=== PATIENT | male | born 1960 | race Caucasian/White ===

== ENCOUNTER → 2021-12-03 13:35 | Outpatient (CLI) | payer OTHER, SELFPAY ==
--- NOTE | 2021-12-03 13:36 | DI.RAD.S_ITS ---
PROCEDURE: XR FOOT RT MIN 3V INDICATIONS: bilateral foot pain TECHNIQUE: 3 views of the foot were acquired. COMPARISON: [facility], , XR FOOT LT MIN 3V, 12/03/2021, 13:52. FINDINGS: Bones: No acute fractures or dislocations. No suspicious bony lesions. Mild scattered degenerative changes are seen in the interphalangeal joints of the toes. Soft tissues: No suspicious soft tissue calcification. IMPRESSION: No acute osseous abnormality. If the symptoms persist, consider cross sectional imaging such as MRI or CT for further assessment. Dictated by: Franko Cabrera M.D. on 12/03/2021 at 20:16 Approved by: Franko Cabrera M.D. on 12/03/2021 at 20:17
--- NOTE | 2021-12-03 13:36 | DI.RAD.S_ITS ---
PROCEDURE: XR FOOT LT MIN 3V INDICATIONS: bilateral foot pain TECHNIQUE: 3 views of the foot were acquired. COMPARISON: None. FINDINGS: Bones: No acute fractures or dislocations. No suspicious bony lesions. Mild scattered degenerative changes are seen in the interphalangeal joints of the toes. Soft tissues: No suspicious soft tissue calcification. IMPRESSION: No acute osseous abnormality. If the symptoms persist, consider cross sectional imaging such as MRI or CT for further assessment. Dictated by: Franko Cabrera M.D. on 12/03/2021 at 20:09 Approved by: Franko Cabrera M.D. on 12/03/2021 at 20:10
== END ==
PROVIDERS: PCP Family Medicine; Referring Provider Family Medicine; Visit Provider Family Medicine
DX: M79.671 Pain in right foot (principal); M79.672 Pain in left foot
CPT/HCPCS: 73630

== ENCOUNTER → 2021-12-06 09:08 | Outpatient (CLI) | payer OTHER, SELFPAY ==
[2021-12-06 09:46] LABS: Add Manual Diff / Slide Review NO; Basophils Absolute Auto 100 /uL (0-100); Basophils Percent Auto 1.1 % (0-2); Eosinophils Absolute Auto 200 /uL (0-450); Eosinophils Percent Auto 4.6 % (2-4); Hematocrit 40.2 % (41-53); Hemoglobin 13.8 g/dL (13.5-17.5); Lymphocytes Absolute Auto 1600 /uL (1100-4500); Lymphocytes Percent Auto 32.3 % (25-40); Mean Corpuscular HGB Conc 34.3 % (30-36); Mean Corpuscular Volume 90.3 fL (80-100); Monocytes Absolute Auto 400 /uL (0-900); Monocytes Percent Auto 8.4 % (3-14); Neutrophils Absolute Auto 2600 /uL (1500-7000); Neutrophils Percent Auto 53.6 % (50-75); Platelet Count 185 X10^3/uL (150-400); Red Blood Cell Count 4.46 X10^6/uL (4.5-5.9); Red Cell Distribution Width 13.5 % (11.6-14.8); White Blood Cell Count 4.8 X10^3/uL (4.5-11.0)
[2021-12-06 12:04] LABS: HEMOLYSIS < 15 (0-50); Iron 150 ug/dL (49-181)
[2021-12-06 12:10] LABS: Alanine Aminotransferase 29 IU/L (<50); Albumin 4.1 g/dL (3.5-5.0); Albumin Globulin Ratio 1.4 (1.0-2.8); Alkaline Phosphatase 82 U/L (38-126); Aspartate Aminotransferase 35 IU/L (17-59); BUN Creatinine Ratio 23.3 (6-22); Bilirubin Total 1.8 mg/dL (0.2-1.3); Blood Urea Nitrogen 14 mg/dL (9-20); Calcium 8.9 mg/dL (8.4-10.2); Carbon Dioxide 30 mmol/L (22-32); Chloride 104 mmol/L (98-107); Cholesterol 177 mg/dL (140-199); Estimated Glomerular Filt Rate > 60 mL/min (>60); Glucose 87 mg/dL (80-110); HDL Cholesterol 87 mg/dL (40-60); HEMOLYSIS < 15 (0-50); LDL Cholesterol Calculated 78 mg/dL (<100); Potassium 4.1 mmol/L (3.4-5.1); Sodium 139 mmol/L (137-145); Total Protein 7.1 g/dL (6.3-8.2); Triglycerides 58 mg/dL (35-150)
[2021-12-06 12:16] LABS: Percent Iron Saturation 37 % (20-50); Total Iron Binding Capacity 403 ug/dL (261-462); Transferrin 299 mg/dL (206-381)
[2021-12-06 12:36] LABS: TSH w/ Reflex to FT4 2.64 uIU/mL (0.47-4.68)
[2021-12-06 12:42] LABS: Ferritin 14 ng/mL (18-464)
== END ==
PROVIDERS: PCP Family Medicine; Referring Provider Family Medicine; Visit Provider Family Medicine
DX: D50.9 Iron deficiency anemia, unspecified (principal); Z78.9 Other specified health status
CPT/HCPCS: 36415; 80053; 80061; 82728; 83540; 83550; 84443; 85025

== ENCOUNTER → 2022-01-22 09:07 | Outpatient (CLI) | payer OTHER, SELFPAY ==
[2022-01-22 11:03] LABS: COVID19 -Nasal RAPID Negative (Negative)
== END ==
PROVIDERS: PCP Family Medicine; Visit Provider Surgery
DX: Z01.812 Encounter for preprocedural laboratory examination (principal); Z20.822 Contact with and (suspected) exposure to COVID-19
CPT/HCPCS: 87635; C9803

== ENCOUNTER 2022-01-23 13:12 | Day surgery (SDC) | payer OTHER, SELFPAY ==
[2022-01-23] VITALS (7 sets, daily range): BP systolic 95–123; BP diastolic 56–82; PULSE 54–82; RESP 8–18; TEMP 36.4–36.8; O2SAT 98–99; BMI 20.5
--- NOTE | 2022-01-23 14:50 | PM.HP.1 ---
History of Present Illness History of Present Illness Date Patient Seen: 01/23/22 Time Patient Seen: 14:50 Chief complaint: Colonoscopy Narrative: Srini is a 61-year-old man who is here for a colonoscopy for colon cancer screening. He believes his last colonoscopy was about 10 years ago and nothing was found. He has no known family history of colon cancer. Patient History Medical History Chicken pox (~1990) Foot pain (~2020) GERD (gastroesophageal reflux disease) (~1989) History of IBS (~1989) Iron deficiency anemia Kienb?ck's disease Right foot pain Vegetarian diet Surgical History (Updated 12/18/21 @ 19:28 by Ghada Shelley) Anesthesia History of surgery on wrist (~2009) Family & Social History Family History (Updated 12/18/21 @ 19:29 by Ghada Shelley) Father Hypertension Mother Cancer Social History: household members spouse Tobacco & Substance use: Smoking Status Never smoker alcohol intake current alcohol intake frequency 0-2 drinks per day Substance Use Type does not use Meds Home Medications and Allergies Home Medications Medication Instructions Recorded Confirmed Type sodium sul 1.479 gram-potas ch See Rx Instructions PO PER PKG DIR 01/14/22 01/23/22 Rx 0.188 gram-magnes sul 0.225 gram #24 tabs tablet (Sutab) Allergies Allergy/AdvReac Type Severity Reaction Status Date / Time No Known Drug Allergies Allergy Verified 01/23/22 13:52 Exam Vital Signs (past 8 hours): - 01/23/22 13:38 Temperature 98 F Pulse Rate 82 Respiratory Rate 16 Blood Pressure 123/82 Pulse Oximetry 99 Oxygen Delivery Method Room Air Oxygen Delivery Method Room Air Const General: healthy appearing Resp Effort & Inspection: normal respiratory effort Assessment & Plan Assessment and plan (1) Colon cancer screening: Status: Acute Plan We reviewed the risks and benefits of colonoscopy for colon cancer screening and he would like to proceed. Time Spent With Patient Critical Care time: I spent a total of [] minutes of critical care time on this patient's care today; this time is exclusive of procedural time.
[2022-01-23] MEDS: MIDAZOLAM 5 MG/5 ML VIAL 7 MG IV (15:12)
[2022-01-23] MEDS: fentaNYL 100 MCG/2 ML INJ 150 MCG IV (15:13)
--- NOTE | 2022-01-23 15:19 | PM.OP.COLON ---
Operative Date/Time/Diagnoses Date of procedure: 01/23/22 Time of procedure: 15:19 Pre-op diagnosis: Colon cancer screening Post-op diagnosis: same Procedure & Clinicians Study performed: Colonoscopy Same procedure as scheduled: Yes Surgeon: Rizwan Mendieta Procedure Notes Procedure in detail: Surgeon: Rizwan Mendieta MD Procedure: The patient was brought to the endoscopy suite, placed in left lateral decubitus position. The patient was connected to monitoring devices. A time-out was performed. Sedation was administered. Once the patient was adequately sedated, a digital rectal exam was performed and was normal. The scope was then inserted and advanced to the cecum where the appendiceal orifice was identified and photographed. The scope was then slowly withdrawn over greater than 6 minutes. The mucosa was thoroughly inspected. No polyps were found. No diverticula were noted. The scope was retroflexed in the rectum. No abnormalities were noted. The scope was straightened and removed. The patient was awakened and brought to recovery. Versed: 7 mg Fentanyl: 150 mcg EBL: 0 Findings: Normal colon Scope withdrawal time: 7 Sedation minutes: 19 Post-procedure Recommendations: Colonoscopy in 10 years Disposition: PACU
== END 2022-01-23 16:09 | disposition home or self-care (01) ==
PROVIDERS: PCP Family Medicine; Referring Provider Surgery; Visit Provider Surgery
PROC: 0DJD8ZZ Inspection of Lower Intestinal Tract, Via Natural or Artificial Opening Endoscopic (ICD-10-PCS; CPT 45378; principal; 2022-01-23 14:15)
DX: Z12.11 Encounter for screening for malignant neoplasm of colon (principal)
CPT/HCPCS: 45378; 99152; J2250; J3010

== ENCOUNTER → 2022-10-28 11:53 | Outpatient (CLI) | payer OTHER, SELFPAY ==
--- NOTE | 2022-10-28 11:55 | DI.RAD.S_ITS ---
PROCEDURE: XR FOOT LT MIN 3V INDICATIONS: left foot swelling and pain TECHNIQUE: 3 views of the foot were acquired. COMPARISON: [facility], , XR FOOT LT MIN 3V, 12/03/2021, 13:52. FINDINGS: Bones: No fractures or dislocations. No suspicious bony lesions. Soft tissues: No tibiotalar joint effusion. Achilles tendon appears normal. No soft tissue gas. IMPRESSION: No fracture. No osseous lesion. If symptoms and/or clinical suspicion for pathology persists, further assessment with repeat radiographs (7-10 days) or advanced imaging (e.g. CT, MRI or bone scan) should be considered. Dictated by: Antonina Nascimento MD, PhD on 10/28/2022 at 13:08 Approved by: Antonina Nascimento MD, PhD on 10/28/2022 at 13:09
== END ==
PROVIDERS: PCP Family Medicine; Referring Provider Family Medicine; Visit Provider Family Medicine
DX: M79.672 Pain in left foot (principal)
CPT/HCPCS: 73630

== ENCOUNTER → 2022-11-08 11:59 | Outpatient (CLI) | payer OTHER, SELFPAY ==
--- NOTE | 2022-11-08 12:00 | DI.MRI.S_ITS ---
PROCEDURE: MRFOOT LT WO CON INDICATIONS: swelling and pain w/ unremarkable x ray TECHNIQUE: Noncontrast sagittal T1 spin echo and T2 fast spin echo with fat saturation, long-axis T1 spin echo and STIR, short-axis T1 spin echo and T2 fast spin echo with fat saturation through the forefoot. COMPARISON: [facility], CR, XR FOOT LT MIN 3V, 12/03/2021, 13:52. Merged With [facility], CR, XR FOOT LT MIN 3V, 10/28/2022, 11:58. FINDINGS: Image quality: Excellent. Bones and joints: Mild osseous edema is seen within the plantar lateral aspect of the 5th metatarsal head. There is mild focal cortical irregularity along the medial aspect of the 5th metatarsal head. Small 5th metatarsophalangeal joint effusion. No bone marrow contusions or metatarsal stress fractures. The sesamoid bones appear in expected positions, without internal edema. No metatarsophalangeal joint degeneration. No intraosseous lesions. Soft tissues: Mild nonspecific soft tissue edema is seen at the dorsal aspect of the foot and within the interosseous musculature. There is subcutaneous fluid in the plantar and lateral subcutaneous tissues adjacent to the 5th metatarsal head. Visualized flexor and extensor tendons appear intact, without tenosynovitis. The distal insertions of the peroneus brevis and longus tendons appear intact. The principal Lisfranc ligament appears intact. No soft tissue ganglion cysts or bursal fluid collections. Sagittal images demonstrate no evidence for plantar plate tears. IMPRESSION: 1. Mild osseous edema within the 5th metatarsal head with mild cortical irregularity that could represent osteitis and a small osseous erosion. Small surrounding joint effusion. Findings are suspicious for a nonspecific inflammatory process including a chronic inflammatory arthritis such as rheumatoid arthritis or a chronic indolent infectious process. Recommend correlation with clinical findings and serologies. 2. Small adventitial bursal effusion in the subcutaneous tissues plantar and lateral to the 5th metatarsal head. 3. Mild soft tissue edema within the intrinsic foot musculature may be reactive versus secondary to myositis, muscle strains, or early denervation changes. 4. Mild nonspecific subcutaneous edema throughout the dorsal lateral aspect of the foot. Approved by: Franko Cabrera M.D. on 11/10/2022 at 16:38
== END ==
PROVIDERS: PCP Family Medicine; Referring Provider Family Medicine; Visit Provider Family Medicine
DX: L03.90 Cellulitis, unspecified (principal); M25.475 Effusion, left foot; M79.672 Pain in left foot; R60.0 Localized edema; M79.89 Other specified soft tissue disorders
CPT/HCPCS: 73718

== ENCOUNTER → 2022-11-11 11:44 | Outpatient (CLI) | payer OTHER, SELFPAY ==
[2022-11-11 13:07] LABS: Erythrocyte Sedimentation Rate 7 MM/HR (0-15)
[2022-11-11 17:42] LABS: C-Reactive Protein Quant < 0.5 mg/dL (<1.0)
[2022-11-11 17:53] LABS: Rheumatoid Factor < 8.6 IU/mL (<12.0)
[2022-11-13 13:40] LABS: CCP Antibodies IgG/IgA 5 units (0-19)
== END ==
PROVIDERS: PCP Family Medicine; Referring Provider Family Medicine; Visit Provider Family Medicine
DX: M79.671 Pain in right foot (principal); M79.672 Pain in left foot; M79.673 Pain in unspecified foot; M79.89 Other specified soft tissue disorders
CPT/HCPCS: 36415; 84550; 85651; 86140; 86200; 86430

== ENCOUNTER 2022-11-22 05:24 | Observation (INO) | payer OTHER, SELFPAY ==
[2022-11-22] VITALS (7 sets, daily range): BP systolic 105–127; BP diastolic 64–74; PULSE 54–62; RESP 16–18; TEMP 36.3–37.2; O2SAT 99–100; BMI 20.5; BMI 22.4
--- NOTE | 2022-11-22 05:44 | ED.GENADULT ---
HPI - General Adult General Chief complaint: Allergic Reaction Stated complaint: woke up with swollen bottom lip Time Seen by Provider: 11/22/22 05:27 Source: patient Mode of arrival: Ambulatory Limitations: no limitations History of Present Illness HPI narrative: Patient is a 62-year-old male. He is otherwise healthy. Approximately 1 month ago had an unexplained swelling to his left foot. Has seen his primary doctor. Has had a pretty extensive workup of this swelling without a definitive diagnosis. He was on doxycycline but has completed the course of the doxycycline a couple weeks ago. Was his normal state of health when he went to bed last night. He woke up this morning approximately 1 hour prior to arrival here in the emergency department with a swollen lower lip. No fevers. No problems swallowing. No problems breathing. No skin rashes anywhere. He is still having some swelling of his left foot but this is not new. He did take some ibuprofen last evening because of his left foot issues. Related Data Previous Rx's Medication Instructions Recorded doxycycline hyclate 100 mg capsule 100 mg PO BID #14 caps 11/03/22 Allergies Allergy/AdvReac Type Severity Reaction Status Date / Time No Known Drug Allergies Allergy Verified 10/28/22 11:24 Review of Systems Constitutional Constitutional: Reports system reviewed and no additional complaints, except as documented ENT Ears, Nose, Mouth, and Throat: Reports system reviewed and no additional complaints, except as documented Respiratory Respiratory: Reports system reviewed and no additional complaints, except as documented Integumentary/Breasts Skin/Breast: Reports system reviewed and no additional complaints, except as documented Neurologic Neurologic: Reports system reviewed and no additional complaints, except as documented Hematologic/Lymphatic On Anticoagulants: No Patient History Medical History Chicken pox (~1990) Foot pain (~2020) GERD (gastroesophageal reflux disease) (~1989) History of IBS (~1989) Iron deficiency anemia Kienb?ck's disease Right foot pain Vegetarian diet Surgical History Anesthesia History of surgery on wrist (~2009) Family History Father Hypertension Mother Cancer Social History household members: spouse Smoking Status: Never smoker alcohol intake: current Smoking Status: Never smoker alcohol intake frequency: 0-2 drinks per day Substance Use Type: does not use Exam Initial Vital Signs Initial Vital Signs: Vital Signs Temperature 97.5 F L 11/22/22 05:30 Pulse Rate 62 11/22/22 05:30 Respiratory Rate 16 11/22/22 05:30 Blood Pressure 127/74 11/22/22 05:30 Pulse Oximetry 100 11/22/22 05:30 Oxygen Delivery Method Room Air 11/22/22 05:30 Const General: cooperative and comfortable HENMT Head: normal to inspection and normocephalic Face and sinus: normal facial exam Mouth: oral mucosae normal, tongue normal, oropharynx normal, No drooling and lip abnormal ( Lower lip swelling and left side of upper lip swollen) Eyes General: Yes appearance normal, both eyes and all related structures Resp Effort & Inspection: normal respiratory effort Auscultation: clear to auscultation bilaterally Cardio Rate: regular rate Skin General: no rashes or lesions noted Neuro General: patient alert, patient awake, patient oriented x3 and moves all extremities Extrem General: capillary refill normal Course Orders Ordered: ED Orders 11/22/22 05:34 Basic Metabolic Panel Stat Complete Blood Count AUTO DIFF Stat 11/22/22 05:36 CRP [C-Reactive Protein Quant] Stat Complement C4 Stat ESR [Erythrocyte Sedimentation Rate] Stat Acetaminophen (Acetaminophen 325 Mg Tablet) 650 mg PO Q6H PRN PRN Reason: Fever/Mild Pain (1-3) Diphenhydramine HCl (Diphenhydramine 50 Mg/Ml Vial) 25 mg IV Q6HR JAMES Famotidine (Famotidine 20 Mg/2 Ml Vial) 20 mg IV NOW JAMES Last Admin: 11/22/22 05:59 Dose: 20 mg Famotidine (Famotidine 20 Mg Tablet) 20 mg PO BID JAMES Naloxone HCl (Naloxone 0.4 Mg/Ml Vial) 0.2 mg IV Q2MIN PRN PRN Reason: Opiate Reversal Non-Formulary Medication (Epi Pen) 1 applicator IM PRN PRN PRN Reason: Anaphylaxis Discontinued Medications Diphenhydramine HCl (Diphenhydramine 50 Mg/Ml Vial) 25 mg IV NOW ONE Stop: 11/22/22 05:35 Last Admin: 11/22/22 05:59 Dose: 25 mg Methylprednisolone (Methylprednisolone 125 Mg/2 Ml Vial) 125 mg IV NOW ONE Stop: 11/22/22 05:35 Last Admin: 11/22/22 05:58 Dose: 125 mg Vital Signs Vital signs: Vital Signs - 8 hr 11/22/22 05:30 11/22/22 05:52 11/22/22 05:54 Temperature 97.5 F L Pulse Rate 62 54 L Respiratory Rate 16 Blood Pressure 127/74 109/65 Pulse Oximetry 100 100 Oxygen Delivery Method Room Air 11/22/22 05:54 Temperature Pulse Rate 55 L Respiratory Rate Blood Pressure Pulse Oximetry 100 Oxygen Delivery Method Medical Decision Making Lab Data Lab results reviewed: Yes I reviewed the patient's lab results. 11/22/22 05:45 11/22/22 05:45 Labs: Lab Results 11/22/22 11/22/22 11/22/22 Range/Units 05:45 05:45 05:45 WBC 6.2 (4.5-11.0) X10^3/uL RBC 4.37 L (4.5-5.9) X10^6/uL Hgb 13.4 L (13.5-17.5) g/dL Hct 39.1 L (41-53) % MCV 89.5 (80-100) fL MCH 30.8 (26-34) PG MCHC 34.4 (30-36) % RDW 13.0 (11.6-14.8) % Plt Count 179 (150-400) X10^3/uL Neut % (Auto) 57.4 (50-75) % Lymph % (Auto) 28.2 (25-40) % [place] % (Auto) 9.2 (3-14) % Eos % (Auto) 4.4 H (2-4) % Baso % (Auto) 0.8 (0-2) % Neut # (Auto) 3600 (0562-5406) /uL Lymph # (Auto) 1800 (4168-2345) /uL [place] # (Auto) 600 (0-900) /uL Eos # (Auto) 300 (0-450) /uL Baso # (Auto) 100 (0-100) /uL ESR 6 (0-15) MM/HR Sodium 139 (137-145) mmol/L Potassium 3.9 (3.4-5.1) mmol/L Chloride 105 (98-107) mmol/L Carbon Dioxide 29 (22-32) mmol/L BUN 16 (9-20) mg/dL Creatinine 0.58 L (0.66-1.25) mg/dL Estimated GFR > 60 (>60) mL/min BUN/Creatinine Ratio 27.6 H (6-22) Glucose 86 (80-110) mg/dL Calcium 8.5 (8.4-10.2) mg/dL C-Reactive Protein (<1.0) mg/dL 11/22/22 Range/Units 05:45 WBC (4.5-11.0) X10^3/uL RBC (4.5-5.9) X10^6/uL Hgb (13.5-17.5) g/dL Hct (41-53) % MCV (80-100) fL MCH (26-34) PG MCHC (30-36) % RDW (11.6-14.8) % Plt Count (150-400) X10^3/uL Neut % (Auto) (50-75) % Lymph % (Auto) (25-40) % [place] % (Auto) (3-14) % Eos % (Auto) (2-4) % Baso % (Auto) (0-2) % Neut # (Auto) (4746-3790) /uL Lymph # (Auto) (8998-7854) /uL [place] # (Auto) (0-900) /uL Eos # (Auto) (0-450) /uL Baso # (Auto) (0-100) /uL ESR (0-15) MM/HR Sodium (137-145) mmol/L Potassium (3.4-5.1) mmol/L Chloride (98-107) mmol/L Carbon Dioxide (22-32) mmol/L BUN (9-20) mg/dL Creatinine (0.66-1.25) mg/dL Estimated GFR (>60) mL/min BUN/Creatinine Ratio (6-22) Glucose (80-110) mg/dL Calcium (8.4-10.2) mg/dL C-Reactive Protein < 0.5 (<1.0) mg/dL MDM Narrative Medical decision making narrative: patient's history and physical exam are most consistent with the angioedema and most likelyThis is because of his ibuprofen/Motrin. He did take 25 mg of Benadryl prior to arrival. We will giveHim BenadrylAnd Solu-Medrol and famotidine although I suspect that this is not going to improve his symptoms. Patient does require admission to the hospital for airway watch given the extent of the angioedema which does appear to be all anterior. I did discuss the case with Dr. Camacho who will admit for further evaluation and treatment. I discuss the need for admission with the patient and his at bedside. They expressed understanding. Discharge Plan Departure Patient Disposition: Admitted as Observation Clinical Impression: Angioedema Admit Date/Time: 11/22/22 05:55 Admit Provider: Rhona Camacho
[2022-11-22 05:54] LABS: Add Manual Diff / Slide Review NO; Basophils Absolute Auto 100 /uL (0-100); Basophils Percent Auto 0.8 % (0-2); Eosinophils Absolute Auto 300 /uL (0-450); Eosinophils Percent Auto 4.4 % (2-4); Hematocrit 39.1 % (41-53); Hemoglobin 13.4 g/dL (13.5-17.5); Lymphocytes Absolute Auto 1800 /uL (1100-4500); Lymphocytes Percent Auto 28.2 % (25-40); Mean Corpuscular HGB Conc 34.4 % (30-36); Mean Corpuscular Hemoglobin 30.8 PG (26-34); Mean Corpuscular Volume 89.5 fL (80-100); Monocytes Absolute Auto 600 /uL (0-900); Monocytes Percent Auto 9.2 % (3-14); Neutrophils Absolute Auto 3600 /uL (1500-7000); Neutrophils Percent Auto 57.4 % (50-75); Platelet Count 179 X10^3/uL (150-400); Red Blood Cell Count 4.37 X10^6/uL (4.5-5.9); White Blood Cell Count 6.2 X10^3/uL (4.5-11.0)
[2022-11-22] MEDS: methylPREDNISolone 125 MG/2 ML VIAL IV (05:58)
[2022-11-22] MEDS: FAMOTIDINE 20 MG/2 ML VIAL IV (05:59)
[2022-11-22] MEDS: diphenhydrAMINE 50 MG/ML VIAL 25 MG IV (05:59)
[2022-11-22 06:04] LABS: BUN Creatinine Ratio 27.6 (6-22); Blood Urea Nitrogen 16 mg/dL (9-20); Calcium 8.5 mg/dL (8.4-10.2); Carbon Dioxide 29 mmol/L (22-32); Chloride 105 mmol/L (98-107); Estimated Glomerular Filt Rate > 60 mL/min (>60); Glucose 86 mg/dL (80-110); HEMOLYSIS < 15 (0-50); Potassium 3.9 mmol/L (3.4-5.1); Sodium 139 mmol/L (137-145)
--- NOTE | 2022-11-22 06:05 | P.HP_ITS ---
History of Present Illness History of Present Illness Date Patient Seen: 11/22/22 Time Patient Seen: 07:03 Date of Onset of Symptoms: 11/22/22 Chief complaint: woke up with swollen bottom lip Narrative: Woke up at 04.00 with swelling of bottom lip after taking Ibuprofen at 23.00 last night. Took 25mg PO Benadryl this am with continued progression of upper and lower lip swelling. Denies scratchy throat, difficulty swallowing, SOB or feeling of airway blockage, tongue swelling, voice changes. Denies any other symptomatology. Notably he had non-traumatic left ankle swelling diagnosed with cellulitis 10/24 and prescribed 7 days doxycycline, with continued work up for possible inflammatory process arthritis, myositis. Also notes he has had several tick bites in [place] over the last year, last one was 18 months ago. Denies associated rash. [facility] Medical History Chicken pox (~1990) Foot pain (~2020) GERD (gastroesophageal reflux disease) (~1989) History of IBS (~1989) Iron deficiency anemia Kienb?ck's disease Right foot pain Vegetarian diet Surgical History Anesthesia History of surgery on wrist (~2009) Family History Father Hypertension Mother Cancer Social History household members: spouse Smoking Status: Never smoker alcohol intake: current Meds Home Medications and Allergies Home Medications Medication Instructions Recorded Confirmed Type doxycycline hyclate 100 mg capsule 100 mg PO BID #14 caps 11/03/22 Rx Allergies Allergy/AdvReac Type Severity Reaction Status Date / Time No Known Drug Allergies Allergy Verified 10/28/22 11:24 Review of Systems Review of Systems ROS: Yes All systems reviewed with the patient and are negative except as otherwise documented Constitutional Constitutional: Reports as per HPI and Reports system reviewed and no additional complaints, except as documented ENT Ears, Nose, Mouth, and Throat: Yes as per HPI and Yes lip swelling Allergic/Immunologic Allergic/Immunologic: Reports lip swelling Exam Const General: healthy appearing and No acute distress HENMT Mouth: lip abnormal Other: lower lip severe edema, left upper lip edema; voice normal Eyes General: appearance normal, both eyes and all related structures Pupils: PERRL EOM: EOM intact bilaterally Neck Neck: normal visual inspection Chest Chest: normal inspection of the chest Resp Effort & Inspection: normal respiratory effort, able to speak in complete sentences, no audible wheezes and not labored Cardio Other: no JVD GI Inspection: normal to inspection Skin General: no rashes or lesions noted Neuro General: patient alert and patient oriented x3 Cranial Nerves: CN's II-XI intact bilaterally Extrem General: normal exam except as noted Other: left ankle edema Psych Appearance: grossly normal Objective Labs 11/22/22 05:45 11/22/22 05:45 Labs: Laboratory Results - last 24 hr 11/22/22 05:45 WBC 6.2 RBC 4.37 L Hgb 13.4 L Hct 39.1 L MCV 89.5 MCH 30.8 MCHC 34.4 RDW 13.0 Plt Count 179 Neut % (Auto) 57.4 Lymph % (Auto) 28.2 [place] % (Auto) 9.2 Eos % (Auto) 4.4 H Baso % (Auto) 0.8 Neut # (Auto) 3600 Lymph # (Auto) 1800 [place] # (Auto) 600 Eos # (Auto) 300 Baso # (Auto) 100 Assessment & Plan Assessment and plan (1) Angioedema: Status: Acute Plan: Observation given severity and progression despite initial benadryl Airway monitoring CRP negative, no leukocytosis Status post Solumedrol, Benadryl in ED Scheduled Benadryl, Famotidine, hold further Solumdrol and assess for continuation, EpiPen at bedside and Rx at discharge ESR, C4 pending Discontinue home NSAIDs, counseled Assessment & Plan narrative: Chronic conditions Left ankle swelling, following with PCP for etiology ARTURO GERD not on home medications IBS Time Spent With Patient Time with patient: 50 to 69 minutes with 50% spent counseling/coordinating care
[2022-11-22 06:06] LABS: C-Reactive Protein Quant < 0.5 mg/dL (<1.0)
[2022-11-22 06:14] LABS: Erythrocyte Sedimentation Rate 6 MM/HR (0-15)
--- NOTE | 2022-11-22 07:00 | PM.HP.1 ---
History of Present Illness History of Present Illness Chief complaint: woke up with swollen bottom lip Narrative: Woke up at 04.00 with swelling of bottom lip after taking Ibuprofen at 23.00 last night. Took 25mg PO Benadryl this am with continued progression of upper and lower lip swelling. Denies scratchy throat, difficulty swallowing, SOB or feeling of airway blockage, tongue swelling, voice changes. Denies any other symptomatology. Notably he had non-traumatic left ankle swelling diagnosed with cellulitis 10/24 and prescribed 7 days doxycycline, with continued work up for possible inflammatory process arthritis, myositis. Also notes he has had several tick bites in [place] over the last year, last one was 18 months ago. Denies associated rash. [facility] Medical History Chicken pox (~1990) Foot pain (~2020) GERD (gastroesophageal reflux disease) (~1989) History of IBS (~1989) Iron deficiency anemia Kienb?ck's disease Right foot pain Vegetarian diet Surgical History Anesthesia History of surgery on wrist (~2009) Family History Father Hypertension Mother Cancer Social History household members: spouse Smoking Status: Never smoker alcohol intake: current Meds Home Medications and Allergies Home Medications Medication Instructions Recorded Confirmed Type diphenhydramine HCl 50 mg capsule 50 mg PO Q6-8H PRN allergic 11/22/22 11/25/22 Rx reaction #30 caps epinephrine 0.3 mg/0.3 mL 0.3 mg (0.3 mL) IM Q10M PRN 11/22/22 11/25/22 Rx injection, auto-injector hypersensitivity reaction #2 ea prednisone 20 mg tablet See Rx Instructions .Route 11/22/22 11/25/22 Rx .COMPLEX #12 tabs Allergies Allergy/AdvReac Type Severity Reaction Status Date / Time ibuprofen Allergy Severe Swelling Verified 11/25/22 13:40 of Lip/Tongue/Throat Review of Systems Review of Systems ROS: Yes All systems reviewed with the patient and are negative except as otherwise documented Constitutional Constitutional: Reports as per HPI and Reports system reviewed and no additional complaints, except as documented ENT Ears, Nose, Mouth, and Throat: Yes as per HPI and Yes lip swelling Allergic/Immunologic Allergic/Immunologic: Reports lip swelling Exam Vital Signs (past 8 hours): Oxygen Delivery Method Room Air Oxygen Flow Rate 0 Objective Labs 11/22/22 05:45 11/22/22 05:45 Assessment & Plan Assessment and plan (1) Angioedema: Qualifiers: Encounter type: subsequent encounter Qualified Code(s): T78.3XXD - Angioneurotic edema, subsequent encounter Status: Acute Plan: Observation given severity and progression despite initial benadryl Airway monitoring CRP negative, no leukocytosis Status post Solumedrol, Benadryl in ED Scheduled Benadryl, Famotidine, hold further Solumdrol and assess for continuation, EpiPen at bedside and Rx at discharge ESR, C4 pending Discontinue home NSAIDs, counseled Assessment & Plan narrative: Chronic conditions Left ankle swelling, following with PCP for etiology ARTURO GERD not on home medications IBS Time Spent With Patient Time with patient: 50 to 69 minutes with 50% spent counseling/coordinating care Quality VTE Deep Vein Thrombosis/Pulmonary Embolism Present on Admission: No
[2022-11-22] MEDS: FAMOTIDINE 20 MG TABLET PO (08:53)
--- NOTE | 2022-11-22 09:16 | CM.DANOTE ---
Reviewed chart with existing information, and patient discussed in multidisciplinary rounds this morning. Met with patient and introduced to care coordination and discharge planning. They agree to assessment. Pt is a 62 year old patient admitted for sudden swelling of bottom lip, starting at 0400 am. 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 DCP is home with supportive family and existing primary care. PCP: Guillermo Zelaya DME: none Payer: [facility] Barriers: none foreseen Sharonda Cid RN, CM Discharge Planning/Care Management CM Discharge Assessment Start: 11/22/22 09:14 Freq: Status: Active Protocol: Document 11/22/22 09:15 BQ (Rec: 11/22/22 09:15 BQ [id number]) Discharge Planning Assessment Assigned Medical Driver Sharonda Cid RN, CM Advance Directives? No History Provided By Patient,Medical Record Has Patient been admitted in last 30 No days? Prior Living Arrangements House Household Members spouse Type of transporation used prior to Drives own vehicle admit Independent with ADL's Yes Is patient alert and oriented? Yes Caregiver for Another No Barriers to Discharge No Discharge Plan Home Referrals Initiated None needed Whiteboard Updated in Patient Room with Yes name and ext. # of Medical Driver Review Status In Process Next Review Type Continued Stay Review
--- NOTE | 2022-11-22 12:41 | PC.NURSE ---
Addendum entered by Riddhi Harrison R.N. 11/22/22 13:35: Pt HL D/C'd intact, Home instructions given w/apparent understanding Pt escorted by staff via W/C to waiting vehicle in stable condition. Original Note: Pt was admitted from ED at 0630\ A/O, Denies discomfort. Lower lip swollen, tender to touch No drainage noted. Pt states he feels like it is decreasing in size,. MD in to see pt Discharge orders received,
--- NOTE | 2022-11-22 15:08 | P.DS_ITS ---
History of Present Illness History of Present Illness Date Patient Seen: 11/22/22 Time Patient Seen: 07:03 Date of Onset of Symptoms: 11/22/22 Chief complaint: woke up with swollen bottom lip Narrative: Woke up at 04.00 with swelling of bottom lip after taking Ibuprofen at 23.00 last night. Took 25mg PO Benadryl this am with continued progression of upper and lower lip swelling. Denies scratchy throat, difficulty swallowing, SOB or feeling of airway blockage, tongue swelling, voice changes. Denies any other symptomatology. Notably he had non-traumatic left ankle swelling diagnosed with cellulitis 10/24 and prescribed 7 days doxycycline, with continued work up for possible inflammatory process arthritis, myositis. Also notes he has had several tick bites in [place] over the last year, last one was 18 months ago. Denies associated rash. Discharge Providers Provider Date of admission: 11/22/22 05:55 Discharge Date: 11/22/22 Primary care physician: Guillermo Zelaya MD Discharge provider: Db Jeronimo DO Summary Hospital Course Discharge Diagnosis: # Acute Angioedema Likely due to ibuprofen taken the night before, although without urticaria or pruritis No airway involvement CRP negative, ESR negative, no leukocytosis Status post Solumedrol, Benadryl in ED Scheduled Benadryl, Famotidine, EpiPen at bedside and Rx at discharge ESR, C4 pending, C1 esterase pending Discontinue home NSAIDs, added ibuprofen to allergy list Swelling improved with IV solumedrol and pepcid Chronic conditions: Left ankle swelling, following with PCP for etiology ARTURO GERD not on home medications Hospital Course: Admitted for acute angioedema of lips and jaw. No tongue or airway involvement. Received IV solumedrol and benadryl with improvement in swelling. Likely etiolo gy from ibuprofen, but patient counseled on possibly seeing an finance associate to determine if he could have hereditary angioedema. C1 and C4 labs pending. Patient elected to discharge home on prednisone taper, daily cetirizine, benadryl PRN and with an epipen if needed. He will f/u with PCP for finance associate referral and to ensure resolution of swelling. Time Spent with Patient Time spent: Greater than 30 minutes Exam Vital Signs (past 8 hours): - 11/22/22 08:00 11/22/22 12:00 Temperature 97.8 F 97.3 F L Pulse Rate 60 62 Respiratory Rate 17 17 Blood Pressure 105/64 125/72 Pulse Oximetry 99 99 Oxygen Flow Rate 0 0 Oxygen Delivery Method Room Air Oxygen Flow Rate 0 Const General: healthy appearing and No acute distress HENMT Mouth: lip abnormal Other: lower lip edema, left upper lip edema; voice normal Eyes General: appearance normal, both eyes and all related structures Pupils: PERRL EOM: EOM intact bilaterally Neck Neck: normal visual inspection Chest Chest: normal inspection of the chest Resp Effort & Inspection: normal respiratory effort, able to speak in complete sentences, no audible wheezes and not labored Cardio Other: no JVD GI Inspection: normal to inspection Skin General: no rashes or lesions noted Neuro General: patient alert and patient oriented x3 Cranial Nerves: CN's II-XI intact bilaterally Extrem General: normal exam except as noted Other: left ankle edema Psych Appearance: grossly normal Objective Labs 11/22/22 05:45 11/22/22 05:45 Labs: Laboratory Results - last 24 hr 11/22/22 11/22/22 11/22/22 05:45 05:45 05:45 WBC 6.2 RBC 4.37 L Hgb 13.4 L Hct 39.1 L MCV 89.5 MCH 30.8 MCHC 34.4 RDW 13.0 Plt Count 179 Neut % (Auto) 57.4 Lymph % (Auto) 28.2 [place] % (Auto) 9.2 Eos % (Auto) 4.4 H Baso % (Auto) 0.8 Neut # (Auto) 3600 Lymph # (Auto) 1800 [place] # (Auto) 600 Eos # (Auto) 300 Baso # (Auto) 100 ESR 6 Sodium 139 Potassium 3.9 Chloride 105 Carbon Dioxide 29 BUN 16 Creatinine 0.58 L Estimated GFR > 60 BUN/Creatinine Ratio 27.6 H Glucose 86 Calcium 8.5 C-Reactive Protein 11/22/22 05:45 WBC RBC Hgb Hct MCV MCH MCHC RDW Plt Count Neut % (Auto) Lymph % (Auto) [place] % (Auto) Eos % (Auto) Baso % (Auto) Neut # (Auto) Lymph # (Auto) [place] # (Auto) Eos # (Auto) Baso # (Auto) ESR Sodium Potassium Chloride Carbon Dioxide BUN Creatinine Estimated GFR BUN/Creatinine Ratio Glucose Calcium C-Reactive Protein < 0.5 PFSH Medical History Chicken pox (~1990) Foot pain (~2020) GERD (gastroesophageal reflux disease) (~1989) History of IBS (~1989) Iron deficiency anemia Kienb?ck's disease Right foot pain Vegetarian diet Surgical History Anesthesia History of surgery on wrist (~2009) Family History Father Hypertension Mother Cancer Social History household members: spouse Smoking Status: Never smoker alcohol intake: current Discharge Plan Discharge Plan Patient Disposition: Home Provider Discharge Comment: You were admitted for angioedema which is sudden swelling of the lips, mouth and jaw. We believe this may have been due to the ibuprofen you took, however you may want to see an finance associate firm that you do not have an underlying hereditary condition which contributed. Her swelling improved with steroids and antihistamines. I have placed you on a prednisone taper, with an antihistamine twice daily and you may take Benadryl as needed. I have also sent an EpiPen to take if this occurs again. Discharge orders & Medications Prescriptions: New prednisone 20 mg tablet See Rx Instructions .ROUTE .COMPLEX Qty: 12 0RF Rx Instructions: 60 mg (3 pills) daily for 2 days, then 40 mg (2 pills) daily for 2 days, then 20mg (1 pill) daily for 2 days then stop epinephrine 0.3 mg/0.3 mL auto-injector 0.3 mg IM Q10M PRN (Reason: hypersensitivity reaction) Qty: 2 0RF Rx Instructions: for 2 doses cetirizine 10 mg tablet 20 mg PO BID 7 Days Qty: 28 0RF diphenhydramine HCl 50 mg capsule 50 mg PO Q6-8H PRN (Reason: allergic reaction) Qty: 30 0RF Discontinued doxycycline hyclate 100 mg capsule 100 mg PO BID Qty: 14 0RF Follow up/Referrals: Guillermo Zelaya MD [Primary Care Provider] - 3-5 Days Visit Report/Discharge Packet Stand Alone Forms: Patient Portal/API, Stroke Signs & Symptoms Discharge Data Primary Care Provider: Guillermo Zelaya Attending Provider: Rhona Camacho Admit Date/Time: 11/22/22 05:55 Discharges patient from system. Discharge Date/Time: 11/22/22 13:30 Quality VTE Deep Vein Thrombosis/Pulmonary Embolism Present on Admission: No
[2022-11-26 09:17] LABS: C1 Esterase Inhibitor, Func >93 (.)
== END 2022-11-22 13:30 | disposition home or self-care (01) ==
LOC: ED 05:35 → AC 05:55
PROVIDERS: Student in an Organized Health Care Education/Training Program; Admitting Provider Internal Medicine; Emergency Provider Emergency Medicine; PCP Family Medicine; Referring Provider Emergency Medicine; Visit Provider Internal Medicine
DX: T78.3XXA Angioneurotic edema, initial encounter (principal)
CPT/HCPCS: 36415; 80048; 85025; 85651; 86140; 86160; 86161; 96374; 96375; 99283; 99284; G0378; A9270; J1200; J2930

== ENCOUNTER → 2023-01-06 12:40 | Outpatient (CLI) | payer OTHER, SELFPAY ==
[2022-11-22 07:00] VITALS: BMI 22.4
[2023-01-06 14:57] LABS: Uric Acid 6.4 mg/dL (3.5-8.5)
== END ==
PROVIDERS: PCP Family Medicine; Referring Provider Internal Medicine Rheumatology; Visit Provider Internal Medicine Rheumatology
DX: M06.4 Inflammatory polyarthropathy (principal)
CPT/HCPCS: 36415; 84550

== ENCOUNTER → 2023-10-09 08:48 | Outpatient (CLI) | payer OTHER, SELFPAY ==
[2022-11-22 07:00] VITALS: BMI 22.4
--- NOTE | 2023-10-09 08:50 | DI.RAD.S_ITS ---
PROCEDURE: XR HIP W PEL IF DONE RT 2V INDICATIONS: Right Hip Pain TECHNIQUE: AP pelvis with lateral view(s) of the right hip(s). COMPARISON: None. FINDINGS: Bones: No fractures or dislocations. Pelvic ring appears intact. No suspicious bony lesions. Mild to moderate bilateral degenerative hip joint space narrowing. Minimal periarticular osteophytes. No erosions. Soft tissues: The visualized bowel gas pattern is normal. No suspicious soft tissue calcifications. 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 Dictated by: Verenice Bowie M.D. on 10/09/2023 at 13:53 Approved by: Verenice Bowie M.D. on 10/09/2023 at 13:53
[2023-10-09 09:52] LABS: Add Manual Diff / Slide Review NO; Basophils Absolute Auto 0 /uL (0-100); Basophils Percent Auto 0.8 % (0-2); Eosinophils Absolute Auto 300 /uL (0-450); Hematocrit 41.3 % (41-53); Hemoglobin 13.9 g/dL (13.5-17.5); Lymphocytes Absolute Auto 1200 /uL (1100-4500); Lymphocytes Percent Auto 25.5 % (25-40); Mean Corpuscular HGB Conc 33.6 % (30-36); Mean Corpuscular Hemoglobin 30.6 PG (26-34); Monocytes Absolute Auto 500 /uL (0-900); Monocytes Percent Auto 10.2 % (3-14); Neutrophils Absolute Auto 2700 /uL (1500-7000); Neutrophils Percent Auto 57.5 % (50-75); Platelet Count 184 X10^3/uL (150-400); Red Blood Cell Count 4.54 X10^6/uL (4.5-5.9); Red Cell Distribution Width 13.2 % (11.6-14.8); White Blood Cell Count 4.6 X10^3/uL (4.5-11.0)
[2023-10-09 10:28] LABS: HEMOLYSIS 15 (0-50); Iron 115 ug/dL (49-181)
[2023-10-09 10:33] LABS: Alanine Aminotransferase 28 IU/L (<50); Albumin 4.3 g/dL (3.5-5.0); Albumin Globulin Ratio 1.5 (1.0-2.8); Alkaline Phosphatase 75 U/L (38-126); Aspartate Aminotransferase 33 IU/L (17-59); BUN Creatinine Ratio 19.4 (6-22); Bilirubin Total 1.6 mg/dL (0.2-1.3); Blood Urea Nitrogen 13 mg/dL (9-20); Calcium 8.9 mg/dL (8.4-10.2); Carbon Dioxide 30 mmol/L (22-32); Chloride 106 mmol/L (98-107); Estimated Glomerular Filt Rate > 60 mL/min (>60); Globulin 2.8 g/dL (1.7-4.1); Glucose 89 mg/dL (80-110); HEMOLYSIS < 15 (0-50); Potassium 4.3 mmol/L (3.4-5.1); Sodium 140 mmol/L (137-145); Total Protein 7.1 g/dL (6.3-8.2); Uric Acid 6.8 mg/dL (3.5-8.5)
[2023-10-09 10:41] LABS: Percent Iron Saturation 28 % (20-50); Total Iron Binding Capacity 405 ug/dL (261-462); Transferrin 303 mg/dL (206-381)
[2023-10-09 11:05] LABS: Ferritin 12 ng/mL (18-464)
== END ==
PROVIDERS: PCP Family Medicine; Referring Provider Family Medicine; Visit Provider Family Medicine
DX: M25.551 Pain in right hip (principal); M10.9 Gout, unspecified; M06.4 Inflammatory polyarthropathy
CPT/HCPCS: 36415; 73502; 80053; 82728; 83540; 83550; 84550; 85025

== ENCOUNTER → 2025-01-09 10:40 | Outpatient (CLI) | payer OTHER, SELFPAY ==
[2022-11-22 07:00] VITALS: BMI 22.4
[2025-01-09 11:03] LABS: Add Manual Diff / Slide Review NO; Hematocrit 41.6 % (41-53); Hemoglobin 14.1 g/dL (13.5-17.5); Lymphocytes Absolute Auto 1500 /uL (1100-4500); Mean Corpuscular HGB Conc 33.9 % (30-36); Mean Corpuscular Hemoglobin 30.7 PG (26-34); Mean Corpuscular Volume 90.6 fL (80-100); Platelet Count 177 X10^3/uL (150-400)
[2025-01-09 12:59] LABS: Alanine Aminotransferase 30 IU/L (<50); Albumin 4.4 g/dL (3.5-5.0); Albumin Globulin Ratio 1.6 (1.0-2.8); Alkaline Phosphatase 72 U/L (38-126); Blood Urea Nitrogen 10 mg/dL (9-20); Calcium 9.2 mg/dL (8.4-10.2); Carbon Dioxide 28 mmol/L (22-32); Chloride 103 mmol/L (98-107); Estimated Glomerular Filt Rate > 60 mL/min (>60); Globulin 2.7 g/dL (1.7-4.1); Glucose 60 mg/dL (70-99); HEMOLYSIS < 15 (0-50); Potassium 4.6 mmol/L (3.4-5.1); Sodium 140 mmol/L (137-145); Total Protein 7.1 g/dL (6.3-8.2); Uric Acid 6.0 mg/dL (3.5-8.5)
== END ==
PROVIDERS: PCP Family Medicine; Referring Provider Internal Medicine Rheumatology; Visit Provider Internal Medicine Rheumatology
DX: M06.4 Inflammatory polyarthropathy (principal); Z79.899 Other long term (current) drug therapy
CPT/HCPCS: 36415; 80053; 84550; 85025